=== PATIENT | female | born 1960 | race Caucasian/White ===

== ENCOUNTER → 2018-05-07 | Outpatient (CLI) | payer MEDICARE, MEDICAID ==
[~2018-05-07] MED LIST: ABILIFY5 MG PO; ASPIRIN 32325 MG/TAB PO; BP MED UNKNOWN; CELEXA40 MG PO; DESYREL 50MG50 MG PO; EFFEXOR; FLONASE NS; GABAPENTIN; LEVAQUIN 5500 MG/TA1 PO; LITHIUM 60600 MG/CAP PO; LOPRESSOR 225 MG/TAB PO; LORTAB 5/500 501 TAB PO; NORCO 325 MG-51 TAB PO; PERCOCET 325 MG1 TA2 PO; PREDNISONE10 MG PO; PREDNISONE20 MG PO; PROAIR HFA0.09 MG/AC IH; REMERON 15M15 MG/TA1; ROPINAROLE; RT SPIRIVA18 MCG IH; UNABLE; VOLTAREN GEL 1%1 TU TP; ZOVIRAX 200MG200 MG PO; ZOVIRAX800 MG PO; [UNRECOGNIZED DRUG - REMARK]; auralgan OT
== END ==
LOC: MC.RAD 10:20
DX: Z12.31 Encounter for screening mammogram for malignant neoplasm of breast (principal)

== ENCOUNTER → 2018-07-09 | Outpatient (CLI) | payer MEDICARE | LOC: COL.RAD 13:56 | DX: D35.02 Benign neoplasm of left adrenal gland (principal) ==

== ENCOUNTER → 2018-07-13 | Outpatient (CLI) | payer MEDICARE | LOC: COL.LAB 07:42 | DX: D35.02 Benign neoplasm of left adrenal gland (principal) ==

== ENCOUNTER → 2018-07-26 | Outpatient (CLI) | payer MEDICARE | LOC: COL.LAB 07:46 | DX: D35.02 Benign neoplasm of left adrenal gland (principal) ==

== ENCOUNTER → 2018-08-08 | Outpatient (CLI) | payer MEDICARE | LOC: COL.LAB 07:55 | DX: D35.02 Benign neoplasm of left adrenal gland (principal) ==

== ENCOUNTER 2018-09-03 16:50 | Emergency (ER) | payer MEDICARE, MEDICAID ==
[~2018-09-03] VITALS: Ht 157.5 cm; Wt 54.1 kg
[2018-09-03] MEDS ORDERED: MULTI VITAMINS1 TAB PO (17:49)
[2018-09-03] MEDS ORDERED: VENTOLIN0.09 MG IH (17:50)
[2018-09-03] MEDS ORDERED: FLORAJEN A20 Billion PO (17:54)
[2018-09-03 18:03] LABS: BASO % 0.3 % (0.0-2.0); EOS # 0.4 (0.0-0.7); EOS % 3.5 % (0-4.0); GRAN # 7.8 (1.4-6.5); GRAN % 62.1 % (42.2-75.2); HEMATOCRIT 41.4 % (37.0-47.0); HEMOGLOBIN 14.2 g/dl (12.5-16.0); LYMPH # 3.2 (1.2-3.4); LYMPH % 25.7 % (20.0-51.0); MEAN CELL VOLUME 95 fl (80.0-100.0); MEAN CORPUSCULAR HEMOGLOBIN 33 pg (27.0-31.0); MEAN CORPUSCULAR HGB CONC 34 g/dl (33.0-37.0); MEAN PLATELET VOLUME 11.5 fl (7.4-10.4); MONO % 8.1 % (1.7-9.3); PLATELET COUNT 185 K/mm3 (130-400); RED BLOOD COUNT 4.37 M/mm3 (4.10-5.30); REDCELL DISTRIBUTION WIDTH-CV 13.1 % (11.5-14.5)
[2018-09-03 18:15] LABS: BILIRUBIN,TOTAL 0.5 mg/dL (0.0-1.0); CALCIUM 10.1 mg/dL (8.4-10.2); CREATININE, serum 0.85 (0.52-1.25); POTASSIUM 3.9 mmol/L (3.4-5.0)
[2018-09-03 18:16] LABS: C-REACTIVE PROTEIN 0.5 mg/dL (0.0-0.9)
[2018-09-03 19:54] LABS: COLLECTION METHOD CLEAN CATCH
[2018-09-03 20:06] LABS: PH 6 (5-8); SQUAMOUS EPITHELIAL 0-2 /hpf; URINE APPEARANCE Clear; URINE BACTERIA None Seen /hpf; URINE BILIRUBIN Negative (NEGATIVE); URINE BLOOD Negative (NEGATIVE); URINE COLOR Yellow; URINE GLUCOSE Negative (NEGATIVE); URINE KETONE Negative (NEGATIVE); URINE LEUKOCYTE ESTERASE Negative (NEGATIVE); URINE NITRATE Negative (NEGATIVE); URINE PROTEIN(semi-quant) Negative (NEGATIVE); URINE RBC None Seen /hpf; URINE UROBILINOGEN Negative (NEGATIVE)
[2018-09-03] MEDS ORDERED: NORCO 325 MG-51 TAB PO (21:36)
[2018-09-03] MEDS ORDERED: DOXYCYCLINE 10100 MG PO (21:36)
[2018-09-03 22:04] VITALS: TEMP 98.5
[2018-09-03 22:14] VITALS: BP 137/79; PULSE 77
== END 2018-09-03 22:14 | disposition home or self-care (01) ==
LOC: COL.ER 16:50
PROVIDERS: Emergency Medicine
DX: J40 Bronchitis, not specified as acute or chronic (principal); B34.9 Viral infection, unspecified; J44.9 Chronic obstructive pulmonary disease, unspecified; I10 Essential (primary) hypertension; Z98.890 Other specified postprocedural states; F17.210 Nicotine dependence, cigarettes, uncomplicated; Z88.8 Allergy status to other drugs, medicaments and biological substances
CPT/HCPCS: J1885; J2060; J3010; J7030; Q9967

== ENCOUNTER 2019-03-06 08:09 | Day surgery (SDC) | payer MEDICARE, MEDICAID ==
[2019-03-06] VITALS (7 sets, daily range): BP systolic 97–140; BP diastolic 64–81; PULSE 74–88; TEMP 97.4–97.9
[~2019-03-06] VITALS: Ht 157.5 cm; Wt 55.4 kg
[~2019-03-06 08:09] MED LIST changes: +DOXYCYCLINE 10100 MG PO; +FLORAJEN A20 Billion PO; +MULTI VITAMINS1 TAB PO; +VENTOLIN0.09 MG IH
[2019-03-06] MEDS ORDERED: PRINZIDE 12.5 M1 TA1 PO (09:17)
[2019-03-06] MEDS ORDERED: NORCO 325 MG-51 TAB PO (11:04)
--- NOTE | 2019-03-06 14:26 | NUR ---
PT CONT TO EAT ICE CHIPS, VSS. ENCOURAGED PT TO REST. PT STATED, 'ILL BE ALRIGHT' DENIES PAIN AT THIS TIME, WILL CONT TO MONITOR.
--- NOTE | 2019-03-06 14:35 | NUR ---
PT STARTED DRY HEAVING, C/O NAUSEA. ZOFRAN 4MG GIVEN IV OVER 5 MINUTES GIVEN. PT DENIES PAIN, VSS. MOM IN ROOM, CALL LIGHT IN REACH.
--- NOTE | 2019-03-06 14:38 | NUR ---
1330: PT STATED, 'I FEEL ALOT BETTER NOW.' TOLERATING FLUIDS AND FOOD. CHOCOLATE PUDDIING AND GRAPE JUICE. O2 REMOVED. O2 SATS REMAIN IN THE MID 90'S ON ROOM AIR. O2 SAT WAS 96%. STATES, 'WHEN CAN I GO HOME.' DISCHARGE INFO IS BEING GATHERED.
--- NOTE | 2019-03-06 14:46 | NUR ---
PT A/OX3, DENIES NAUSEA AND/OR PAIN. VS STABLE. DISCHARGE INSTRUCTIONS GIVEN, SCRIPTS GIVEN, PT VOICES UNDERSTANDING. DISCHARGE PAPERS SIGNED. PT TAKEN OUT PER WC TO FAMILY VEHICLE, PT MOM DRIVING.
--- NOTE | 2019-03-06 14:55 | NUR ---
1205: PT FROM PACU INTO BAY 2. PT ALERT TO NAME, SLEEPY. PT STATES FEELING NAUSEATED IN PACU. PT RECIEVED IV PHENERGAN IN PACU. VSS, AFEBRILE. BANDAIDS X4 CLEAN, DRY, INTACT. LUNGS CLEAR, DIMINISHED. O2 SATS 99% ON 2L. BOWEL SOUNDS HYPOACTIVE. PT DENIES PAIN. PT MOM AT BEDSIDE, CALL LIGHT IN REACH.
== END 2019-03-06 15:04 | disposition home or self-care (01) ==
LOC: SDCO 08:09
DX: K81.1 Chronic cholecystitis (principal); K82.8 Other specified diseases of gallbladder; I10 Essential (primary) hypertension; D35.00 Benign neoplasm of unspecified adrenal gland; E78.00 Pure hypercholesterolemia, unspecified; Z82.3 Family history of stroke; Z82.49 Family history of ischemic heart disease and other diseases of the circulatory system; F17.210 Nicotine dependence, cigarettes, uncomplicated; Z88.8 Allergy status to other drugs, medicaments and biological substances; J44.9 Chronic obstructive pulmonary disease, unspecified
CPT/HCPCS: J0690; J1100; J1885; J2370; J2405; J2550; J2704; J3010; J7120

== ENCOUNTER → 2019-06-25 | Outpatient (CLI) | payer MEDICARE ==
[~2019-06-25] MED LIST changes: +PRINZIDE 12.5 M1 TA1 PO
== END ==
LOC: MC.RAD 10:51
DX: Z12.31 Encounter for screening mammogram for malignant neoplasm of breast (principal); Z12.2 Encounter for screening for malignant neoplasm of respiratory organs; C34.32 Malignant neoplasm of lower lobe, left bronchus or lung; I10 Essential (primary) hypertension; Z87.891 Personal history of nicotine dependence

== ENCOUNTER 2020-01-10 11:45 | Emergency (ER) | payer MEDICARE, MEDICAID ==
[~2020-01-10] VITALS: Ht 157.5 cm; Wt 62.7 kg
[2020-01-10 12:06] VITALS: TEMP 98
[2020-01-10 12:42] LABS: BASO % 0.3 % (0.0-2.0); EOS # 0.1 (0.0-0.7); EOS % 0.6 % (0-4.0); GRAN % 66.7 % (42.2-75.2); HEMATOCRIT 47.3 % (37.0-47.0); HEMOGLOBIN 16.1 g/dl (12.5-16.0); LYMPH # 2.6 (1.2-3.4); LYMPH % 22.1 % (20.0-51.0); MEAN CELL VOLUME 92 fl (80.0-100.0); MEAN CORPUSCULAR HEMOGLOBIN 31 pg (27.0-31.0); MEAN CORPUSCULAR HGB CONC 34 g/dl (33.0-37.0); MEAN PLATELET VOLUME 11.3 fl (7.4-10.4); MONO # 1.2 (0.1-0.6); PLATELET COUNT 288 K/mm3 (130-400); RED BLOOD COUNT 5.14 M/mm3 (4.10-5.30); REDCELL DISTRIBUTION WIDTH-CV 13.4 % (11.5-14.5)
[2020-01-10 12:50] LABS: INR 1.1 (0.8-3.0); PROTHROMBIN TIME 12.1 SECONDS (9.7-12.8)
[2020-01-10 12:56] LABS: ALBUMIN 4.8 gm/dL (3.5-5.0); BILIRUBIN,TOTAL 1.1 mg/dL (0.0-1.0); C-REACTIVE PROTEIN 0.8 mg/dL (0.0-0.9); CALCIUM 10.6 mg/dL (8.4-10.2); CREATININE, serum 1.03 (0.52-1.25); POTASSIUM 3.2 mmol/L (3.4-5.0); TOTAL PROTEIN 9.3 gm/dL (6.4-8.2)
[2020-01-10 13:14] LABS: TROPONIN-I 1.13 ng/mL (0.000-0.035)
[2020-01-10 13:43] LABS: PARTIAL THROMBOPLASTIN TIME 33.3 SECONDS (26.0-37.0)
[2020-01-10] MEDS ORDERED: CHANTIX 0.5MG0.5 MG PO (16:22)
[2020-01-10 17:40] VITALS: BP 98/75; PULSE 110
== END 2020-01-10 17:40 | disposition short-term general hospital (02) ==
LOC: COL.ER 11:45
PROVIDERS: Emergency Medicine
DX: R06.02 Shortness of breath (principal); I48.0 Paroxysmal atrial fibrillation; R11.0 Nausea; R07.9 Chest pain, unspecified; I10 Essential (primary) hypertension; J44.9 Chronic obstructive pulmonary disease, unspecified; F17.210 Nicotine dependence, cigarettes, uncomplicated; Z85.118 Personal history of other malignant neoplasm of bronchus and lung; Z88.8 Allergy status to other drugs, medicaments and biological substances
CPT/HCPCS: J0696; J1644; J2930; J7030; Q9967

== ENCOUNTER 2020-07-16 06:50 | Outpatient (CLI) | payer MEDICARE ==
[~2020-07-16] VITALS: Ht 156.2 cm; Wt 64.8 kg
[~2020-07-16 06:50] MED LIST changes: +CHANTIX 0.5MG0.5 MG PO; +DUO-KAPS1 CAP PO; -LOPRESSOR 225 MG/TAB PO; -MULTI VITAMINS1 TAB PO; -PRINZIDE 12.5 M1 TA1 PO; +TOPROL XL 50MG50 MG PO; +ZESTRIL40 MG PO
[2020-07-16 07:56] LABS: HEMATOCRIT 37.1 % (37.0-47.0); HEMOGLOBIN 12.1 g/dl (12.5-16.0); MEAN CELL VOLUME 94 fl (80.0-100.0); MEAN CORPUSCULAR HEMOGLOBIN 31 pg (27.0-31.0); MEAN CORPUSCULAR HGB CONC 33 g/dl (33.0-37.0); MEAN PLATELET VOLUME 10.4 fl (7.4-10.4); PLATELET COUNT 186 K/mm3 (130-400); RED BLOOD COUNT 3.97 M/mm3 (4.10-5.30); REDCELL DISTRIBUTION WIDTH-CV 13.9 % (11.5-14.5)
[2020-07-16 08:05] LABS: ALANINE AMINOTRANSFERASE 23 U/L (4-34); ALBUMIN 3.8 gm/dL (3.5-5.0); ALKALINE PHOSPHATASE 69 U/L (50-136); ANION GAP 7 mmol/L (7-16); AST,SGOT 28 U/L (15-37); BILIRUBIN,TOTAL < 0.1 mg/dL (0.0-1.0); BLOOD UREA NITROGEN 19 mg/dL (7-17); CALCIUM 8.8 mg/dL (8.4-10.2); CARBON DIOXIDE 29 mmol/L (22-30); CHLORIDE 104 mmol/L (98-107); CREATININE, serum 0.68 (0.52-1.25); GLUCOSE 86 mg/dL (74-106); POTASSIUM 4.1 mmol/L (3.4-5.0); SODIUM 140 mmol/L (137-145); TOTAL PROTEIN 7.5 gm/dL (6.4-8.2)
[2020-07-16 08:10] LABS: PROTHROMBIN TIME 10.9 SECONDS (9.7-12.8)
[2020-07-16 08:14] VITALS: BP 142/112; PULSE 66; TEMP 97.7
[2020-07-16] MEDS ORDERED: ASPIRIN 81M81 MG/TA2 PO (08:21)
[2020-07-16] MEDS ORDERED: LOTRIMIN1% TP (08:23)
[2020-07-16] MEDS ORDERED: APRESOLINE 10MG10 MG PO (08:24)
[2020-07-16] MEDS ORDERED: TAMBOCOR 1100 MG/TAB PO (08:24)
[2020-07-16] MEDS ORDERED: MAG-OX 400400 MG/TAB PO (08:25)
[2020-07-16] MEDS ORDERED: COMPAZINE 5MG TA5 MG PO (08:27)
[2020-07-16] MEDS ORDERED: RT SPIRIVA18 MCG IH (08:27)
[2020-07-16] MEDS ORDERED: TRIAMCINOLONE A15 G3 TP (08:29)
[2020-07-16] MEDS ORDERED: VENTOLIN0.09 MG IH (08:29)
[2020-07-16 09:20] VITALS: BP 112/76; PULSE 77
[2020-07-16 09:30] VITALS: BP 118/82; PULSE 81
[2020-07-16 09:45] VITALS: BP 136/86; PULSE 77
[2020-07-16] MEDS ORDERED: ELIQUIS 2.5 PO (09:54)
[2020-07-16 10:00] VITALS: BP 140/88; PULSE 74
[2020-07-16] MEDS ORDERED: NORVASC 5MG5 MG/TAB PO (10:01)
[2020-07-16 10:15] VITALS: BP 139/88; PULSE 72
--- NOTE | 2020-07-16 11:00 | NUR ---
Discharge instructions given to pt.Pt verbalizes understanding.INT removed,catheter tip intact.Pt escorted out via wheelchair by this nurse.
== END 2020-07-16 11:27 | disposition home or self-care (01) ==
LOC: COL.RAD 06:50
PROVIDERS: Internal Medicine Adult Congenital Heart Disease
DX: I48.91 Unspecified atrial fibrillation (principal); I08.1 Rheumatic disorders of both mitral and tricuspid valves; I70.0 Atherosclerosis of aorta
CPT/HCPCS: J2704; J7030

== ENCOUNTER 2020-10-13 07:20 | Outpatient (CLI) | payer MEDICARE, MEDICAID ==
[2020-10-13] VITALS (7 sets, daily range): BP systolic 80–110; BP diastolic 59–78; PULSE 60–73; TEMP 97.8
[~2020-10-13] VITALS: Ht 156.3 cm; Wt 68.3 kg
[~2020-10-13 07:20] MED LIST changes: +APRESOLINE 10MG10 MG PO; +ASPIRIN 81M81 MG/TA2 PO; +COMPAZINE 5MG TA5 MG PO; +ELIQUIS 2.5 PO; +LOTRIMIN1% TP; +MAG-OX 400400 MG/TAB PO; +NORVASC 5MG5 MG/TAB PO; +TAMBOCOR 1100 MG/TAB PO; +TRIAMCINOLONE A15 G3 TP
[2020-10-13 08:33] LABS: HEMOGLOBIN 10.1 g/dl (12.5-16.0); MEAN CELL VOLUME 96 fl (80.0-100.0); MEAN CORPUSCULAR HEMOGLOBIN 30 pg (27.0-31.0); MEAN CORPUSCULAR HGB CONC 31 g/dl (33.0-37.0); MEAN PLATELET VOLUME 10.2 fl (7.4-10.4); PLATELET COUNT 305 K/mm3 (130-400); RED BLOOD COUNT 3.37 M/mm3 (4.10-5.30); REDCELL DISTRIBUTION WIDTH-CV 14.5 % (11.5-14.5)
[2020-10-13 08:34] LABS: HEMATOCRIT 32.5 % (37.0-47.0)
[2020-10-13 08:38] LABS: INR 1.1 (0.8-3.0); PROTHROMBIN TIME 12.5 SECONDS (9.7-12.8)
[2020-10-13 08:42] LABS: CALCIUM 8.9 mg/dL (8.4-10.2); CREATININE, serum 1.52 (0.52-1.25); POTASSIUM 4.8 mmol/L (3.4-5.0)
[2020-10-13] MEDS ORDERED: NORVASC2.5 MG PO (08:43)
[2020-10-13] MEDS ORDERED: LIPITOR20 MG PO (08:49)
[2020-10-13] MEDS ORDERED: SINEQUAN 5050 MG/CAP PO (08:51)
[2020-10-13] MEDS ORDERED: PEPCID 20MG TAB20 MG PO (08:52)
--- NOTE | 2020-10-13 09:30 | NUR ---
REPORT FROM KIM PATEL, PT IS AWAKE AND ALERT, NO DISTRESS OR COMPLAINTS. ABLE TO DRINK WATER AND JUICE WITH NO PROBLEM.
--- NOTE | 2020-10-13 10:51 | NUR ---
PT has been doing fine during her recovery period. pt remains awake and alert, she is amb now with steady gait, she ambulated to br in rm [address] Mcdaniel was just at bs to discuss poc. discharge is pending.
[2020-10-13] MEDS ORDERED: PLAVIX 75MG TAB75 MG PO (10:53)
[2020-10-13] MEDS ORDERED: ASPIRIN 81M81 MG/TA2 PO (10:54)
--- NOTE | 2020-10-13 11:17 | NUR ---
Pt is ready for discharge. i have reviewed dc/fu and rx instructions wtih pt. pt verbalized understanding. iv is dc'd with cath intact, dressing applied. to exit via wheelchair.
== END 2020-10-13 12:04 | disposition home or self-care (01) ==
LOC: COL.RAD 07:20
PROVIDERS: Internal Medicine Adult Congenital Heart Disease
DX: Z95.818 Presence of other cardiac implants and grafts (principal)
CPT/HCPCS: J2704

== ENCOUNTER 2021-07-19 17:09 | Emergency (ER) | payer MEDICARE, MEDICAID ==
[~2021-07-19] VITALS: Ht 154.9 cm; Wt 72.7 kg
[~2021-07-19 17:09] MED LIST changes: +LIPITOR20 MG PO; +NORVASC2.5 MG PO; +PEPCID 20MG TAB20 MG PO; +PLAVIX 75MG TAB75 MG PO; +SINEQUAN 5050 MG/CAP PO
[2021-07-19 18:01] LABS: BASO % 0.3 % (0.0-2.0); EOS # 0.5 K/mm3 (0.0-0.7); EOS % 6.9 % (0.0-4.0); GRAN # 3.4 K/mm3 (1.4-6.5); GRAN % 52.6 % (42.2-75.2); HEMATOCRIT 37.1 % (37.0-47.0); HEMOGLOBIN 12.1 g/dl (12.5-16.0); LYMPH # 1.9 K/mm3 (1.2-3.4); LYMPH % 29.6 % (20.0-51.0); MEAN CELL VOLUME 90 fl (80.0-100.0); MEAN CORPUSCULAR HEMOGLOBIN 29 pg (27-31); MEAN CORPUSCULAR HGB CONC 33 g/dl (33.0-37.0); MONO # 0.7 K/mm3 (0.1-0.6); MONO % 10.3 % (1.7-9.3); PLATELET COUNT 207 K/mm3 (130-400); RED BLOOD COUNT 4.11 M/mm3 (4.10-5.30); REDCELL DISTRIBUTION WIDTH-CV 14.6 % (11.5-14.5)
[2021-07-19 18:17] LABS: ALBUMIN 3.6 gm/dL (3.5-5.0); BILIRUBIN,TOTAL 0.4 mg/dL (0.2-1.2); CALCIUM 8.9 mg/dL (8.4-10.2); CREATININE, serum 0.96 mg/dL (0.57-1.11); POTASSIUM 3.6 mmol/L (3.5-4.5); TOTAL PROTEIN 7.3 gm/dL (6.2-8.1)
[2021-07-19 18:22] LABS: TROPONIN-I 0.017 ng/mL (0.00-0.033)
[2021-07-19] MEDS ORDERED: DOXYCYCLINE 10100 MG PO (19:41)
[2021-07-19] MEDS ORDERED: PREDNISONE50 MG PO (19:41)
[2021-07-19 19:58] VITALS: BP 154/82; PULSE 63; TEMP 98.2
== END 2021-07-19 19:58 | disposition home or self-care (01) ==
LOC: COL.ER 17:09
PROVIDERS: Emergency Medicine
DX: J44.1 Chronic obstructive pulmonary disease with (acute) exacerbation (principal); R03.0 Elevated blood-pressure reading, without diagnosis of hypertension; Z87.891 Personal history of nicotine dependence; Z20.822 Contact with and (suspected) exposure to COVID-19
CPT/HCPCS: J7512

== ENCOUNTER 2021-07-21 12:41 | Inpatient (IN) | payer MEDICARE, MEDICAID ==
[~2021-07-21] VITALS: Ht 154.9 cm; Wt 69.3 kg
[~2021-07-21 12:41] MED LIST changes: +PREDNISONE50 MG PO
[2021-07-21 13:53] LABS: BASO % 0.2 % (0.0-2.0); EOS % 0.1 % (0.0-4.0); GRAN # 9.5 K/mm3 (1.4-6.5); GRAN % 84.7 % (42.2-75.2); HEMATOCRIT 38.5 % (37.0-47.0); HEMOGLOBIN 12.5 g/dl (12.5-16.0); LYMPH # 1.1 K/mm3 (1.2-3.4); LYMPH % 9.6 % (20.0-51.0); MEAN CELL VOLUME 91 fl (80.0-100.0); MEAN CORPUSCULAR HEMOGLOBIN 30 pg (27-31); MEAN CORPUSCULAR HGB CONC 33 g/dl (33.0-37.0); MEAN PLATELET VOLUME 10.8 fl (7.4-10.4); MONO # 0.6 K/mm3 (0.1-0.6); PLATELET COUNT 233 K/mm3 (130-400); RED BLOOD COUNT 4.23 M/mm3 (4.10-5.30); REDCELL DISTRIBUTION WIDTH-CV 14.8 % (11.5-14.5)
[2021-07-21 14:23] LABS: ALANINE AMINOTRANSFERASE 17 U/L (0-55); ALBUMIN 3.9 gm/dL (3.5-5.0); ALKALINE PHOSPHATASE 88 U/L (40-150); ANION GAP 11 mmol/L (7-16); AST,SGOT 16 U/L (5-34); BILIRUBIN,TOTAL 0.4 mg/dL (0.2-1.2); BLOOD UREA NITROGEN 15 mg/dL (10-20); CALCIUM 9.5 mg/dL (8.4-10.2); CARBON DIOXIDE 26 mmol/L (22-29); CHLORIDE 104 mmol/L (98-107); CREATININE, serum 0.99 mg/dL (0.57-1.11); GLUCOSE 93 mg/dL (70-99); POTASSIUM 3.7 mmol/L (3.5-4.5); SODIUM 141 mmol/L (136-145); TOTAL PROTEIN 7.7 gm/dL (6.2-8.1)
[2021-07-21 14:29] LABS: TROPONIN-I < 0.010 ng/mL (0.00-0.033)
[2021-07-21] MEDS ORDERED: HCTZ12.5TAB PO (15:53)
[2021-07-21 16:28] VITALS: BP 154/86; PULSE 65; TEMP 98
--- NOTE | 2021-07-21 17:00 | NUR ---
Pt arrived to medical unit room 358 from ER at 1620. Oriented pt to room. Admission assessments and med rec completed. Pt currently on 4 lpm O2 by NC w/sats 92%. Breathing relaxed and unlabored. Denies SOA at rest. Lungs diminished to auscultation. Denies needs at this time. Continuing to monitor.
[2021-07-21 20:05] VITALS: BP 121/61; PULSE 72; TEMP 98
[2021-07-21] MEDS ORDERED: 00186-0372-20 IH (23:27)
[2021-07-22 00:17] VITALS: BP 126/68; BP 137/79; PULSE 57; PULSE 72; TEMP 97.9; TEMP 99
[2021-07-22 03:47] VITALS: BP 130/78; PULSE 107; TEMP 97.8
--- NOTE | 2021-07-22 06:23 | NUR ---
ASSESSMENT COMPLETE FOR THIS SHIFT. PT RESTING IN BED WATCHING TV. PT COMPLAINED OF A HEADACHE. PT GIVEN TYLENOL FOR PAIN. PT FELT TYLENOL WAS EFFECTIVE FOR HER PAIN. PT DENIED PALPITATIONS, SOB, N,V,D OR DIZZINESS. PT EXPRESSED NO OTHER NEEDS AT THIS TIME. CALL LIGHT WITHIN REACH.
[2021-07-22 08:17] LABS: GRAN # 5.8 K/mm3 (1.4-6.5); GRAN % 83.2 % (42.2-75.2); HEMATOCRIT 40.9 % (37.0-47.0); HEMOGLOBIN 13.4 g/dl (12.5-16.0); LYMPH # 0.9 K/mm3 (1.2-3.4); LYMPH % 12.9 % (20.0-51.0); MEAN CELL VOLUME 90 fl (80.0-100.0); MEAN CORPUSCULAR HEMOGLOBIN 30 pg (27-31); MEAN CORPUSCULAR HGB CONC 33 g/dl (33.0-37.0); MEAN PLATELET VOLUME 11.2 fl (7.4-10.4); MONO # 0.2 K/mm3 (0.1-0.6); PLATELET COUNT 235 K/mm3 (130-400); RED BLOOD COUNT 4.55 M/mm3 (4.10-5.30); REDCELL DISTRIBUTION WIDTH-CV 14.6 % (11.5-14.5)
[2021-07-22 08:32] LABS: CALCIUM 9.4 mg/dL (8.4-10.2); POTASSIUM 3.4 mmol/L (3.5-4.5)
--- NOTE | 2021-07-22 08:41 | NUR ---
PT RESTING IN BED. MORNING MEDICATIONS WILL BE GIVEN BY STUDENT RN. SHIFT ASSESSMENT COMPLETED. DENIES ANY PAIN AT THIS TIME. STATES SHE HAS BEEN GETTING SOB WITH ACTIVITY. PT STATES SHE THINKS SHE MAY BE HAVING HALLUCINATIONS X3 TIMES, WILL PASS ALONG TO HOSPITALIST. DENIES ANY OTHER NEEDS. WILL CONTINUE TO MONITOR.
[2021-07-22 08:59] VITALS: BP 157/96; PULSE 82; TEMP 98.1
--- NOTE | 2021-07-22 10:34 | NUR ---
Initial visit; Patient thanked Wildlife Management Professor for looking in on her and offering God's blessings.
[2021-07-22 12:16] VITALS: BP 161/84; PULSE 68; TEMP 97.8
[2021-07-22 16:38] VITALS: BP 144/87; PULSE 68; TEMP 98.1
--- NOTE | 2021-07-22 18:15 | NUR ---
PT HAD UNEVENTFUL DAY. CURRENTLY ON 3.5L VIA NC. COMPLAINS OF PERSISTENT COUGH, DENIES ANY SPUTUM PRODUCTION. WILL PASS ALONG REPORT TO ONCOMING RN.
[2021-07-22 19:22] VITALS: BP 137/72; PULSE 67; TEMP 98.2
[2021-07-23] VITALS (7 sets, daily range): BP systolic 119–165; BP diastolic 51–91; PULSE 62–85; TEMP 97.3–98.3
--- NOTE | 2021-07-23 03:17 | NUR ---
ASSESSMENT COMPLETE FOR THIS SHIFT. PT RESTING IN BED READING SOMETHING ON HER PHONE. PT DENIED PAIN, PALPITATIONS, N,V,D OR DIZZINESS. PT DID STATE SHE CONTINUES TO HAVE SOB WITH AMBULATION. PT HAS HAD AN OTHERWISE UNEVENTFUL NIGHT THUS FAR. PT EXPRESSED NO OTHER NEEDS AT THIS TIME. CALL LIGHT WITHIN REACH.
[2021-07-23 06:49] LABS: BASO % 0.1 % (0.0-2.0); GRAN # 7.3 K/mm3 (1.4-6.5); GRAN % 83.8 % (42.2-75.2); HEMATOCRIT 40.4 % (37.0-47.0); HEMOGLOBIN 13.3 g/dl (12.5-16.0); LYMPH # 0.9 K/mm3 (1.2-3.4); LYMPH % 10.8 % (20.0-51.0); MEAN CELL VOLUME 90 fl (80.0-100.0); MEAN CORPUSCULAR HEMOGLOBIN 30 pg (27-31); MEAN CORPUSCULAR HGB CONC 33 g/dl (33.0-37.0); MONO # 0.4 K/mm3 (0.1-0.6); MONO % 4.6 % (1.7-9.3); PLATELET COUNT 232 K/mm3 (130-400); RED BLOOD COUNT 4.47 M/mm3 (4.10-5.30)
[2021-07-23 07:03] LABS: CALCIUM 9.6 mg/dL (8.4-10.2); CREATININE, serum 0.94 mg/dL (0.57-1.11); POTASSIUM 3.5 mmol/L (3.5-4.5)
--- NOTE | 2021-07-23 08:19 | NUR ---
PT SITTING UP IN BED. MORNING MEDICATIONS WILL BE GIVEN BY STUDENT RN. SHIFT ASSESSMENT COMPLETED. PT CURRENTLY ON 3.5L VIA VA. REPORTS SHE FEELS HER BREATHING HAS IMPROVED. DENIES ANY NEEDS AT THIS TIME. WILL CONTINUE TO MONITOR.
--- NOTE | 2021-07-23 13:24 | NUR ---
First visit from the brake operator sheet metal. No needs right now.
--- NOTE | 2021-07-23 14:51 | NUR ---
poultry farm worker met with patient to discuss discharge plan. Patient reports that she lives in the [facility] in [place]. Patient states that she is Independent with her ADL's and that she is "supposed" to use a platform crutch but doesn't becuase " I trip over it". She does currently have a portable oxygen concentrator and a home concentrator that she stats she has had to use recently. She obtained the equipment through [facility] and states they have been " calling me to get the equipment back". PCP is Dr. Albania Pierre and she utilizes [facility] for medications with no cost difficulty. Patient reports that she does have a DPOA-HC established and that her daughter Malini ([phone]) is listed at her agent. Patient will get a ex ox before discharge and that will need to be sent to [facility]. Discharge plan: Home; may need to send updated oxygen information to [facility]
--- NOTE | 2021-07-23 17:48 | NUR ---
PT HAD UNEVENTFUL EVENING. IS HOPING TO DISCHARGE TOMORROW. WILL CONTINUE TO MONITOR.
[2021-07-24 03:30] VITALS: BP 158/84; PULSE 69; TEMP 97.8
[2021-07-24 04:45] VITALS: BP 121/91; PULSE 122; TEMP 97.7
[2021-07-24 04:57] LABS: CALCIUM 9.5 mg/dL (8.4-10.2); CREATININE, serum 0.99 mg/dL (0.57-1.11); POTASSIUM 3.4 mmol/L (3.5-4.5)
--- NOTE | 2021-07-24 06:20 | NUR ---
ASSESSMENT COMPLETE FOR THIS SHIFT. PT RESTING IN BED WATCH TV. PT DENIED PAIN, PALPITATIONS, N,V,D OR DIZZINESS. PT COMPLAINED OF SOME SOB WITH AMBULATION. LATER THIS SHIFT, ANDREW GRUBBS CALLED AND STATED PT HAD SEVERAL BEATS OF V-TAC. PT NON-SYMPTOMATIC. HOSPITALIST CALLED. PT PLACED ON AMIODARONE DRIP. WILL CONTINUE TO MONITOR. PT EXPRESSED NO OTHER NEEDS AT THIS TIME. CALL LIGHT WITHIN REACH.
[2021-07-24 08:24] VITALS: BP 150/82; PULSE 66; TEMP 99
--- NOTE | 2021-07-24 09:05 | NUR ---
AMIO DRIP STOPPED BY THIS RN. REPORT GIVEN TO JORGE SAUCEDO.
--- NOTE | 2021-07-24 09:15 | NUR ---
PT PLEASANT, AOX4, MAG INFUSING PER ORDER, POTASSIUM REPLACED WITH ALL OTHER MORNING MEDICATIONS, EDUCATED PT ON ALL MEDS GIVEN AND ASSOCIATED LABS. ASSESSMENT PERFORMED, NO OTHER NEEDS AT THIS TIME.
[2021-07-24 11:17] VITALS: BP 140/83; PULSE 64; TEMP 98.3
--- NOTE | 2021-07-24 13:17 | NUR ---
PT REPORTING "MY HEAD FEELS AIRY" WHEN ASKED IF PT MEANT DIZZINESS SHE SAID "NO IT JUST FEELS LIKE ITS FULL OF AIR". PT THEN REQUESTED TYLENOL FOR A HEADACHE. TYLENOL GIVEN AND PT DENIE CHEST PAIN AT THIS TIME
[2021-07-24 15:07] VITALS: BP 132/63; PULSE 66; TEMP 97.7
--- NOTE | 2021-07-24 18:14 | NUR ---
PT PLEASANT, AOX4, REPORTS HEAD DISCOMFORT, UNEVENTFUL SHIFT, PT INDEPENDENT IN THE ROOM, NO OTHER NEEDS
[2021-07-24 20:49] VITALS: BP 131/71; PULSE 65; TEMP 97.8
[2021-07-25 00:38] VITALS: BP 142/81; PULSE 71; TEMP 98.3
[2021-07-25 04:13] VITALS: BP 126/77; PULSE 54; TEMP 97.2
--- NOTE | 2021-07-25 06:20 | NUR ---
ASSESSMENT COMPLETE FOR THIS SHIFT. PT RESTING IN BED WATCHING TV. PT STATED, "I DON'T HAVE CABLE AT HOME, SO I'M GETTING IN MANY SHOWS I CAN!" PT COMPLAINED OF CHEST PAIN THAT SHE SAID LASTED ABOUT TWO SECONDS. HOSPITALIST INFORMED. WILL CONTINUE TO MONOTOR. PT ALSO COMPLAINED OF SOB WITH AMBULATION, WHICH IS NORMAL FOR HER. PT DENIED PALPITATIONS, N,V,D OR DIZZINESS. PT EXPRESSED NO OTHER NEEDS AT THIS TIME. CALL LIGHT WITHIN REACH.
[2021-07-25 07:16] LABS: BASO % 0.1 % (0.0-2.0); EOS % 0.1 % (0.0-4.0); GRAN # 6.7 K/mm3 (1.4-6.5); GRAN % 75.9 % (42.2-75.2); HEMOGLOBIN 13.3 g/dl (12.5-16.0); LYMPH # 1.2 K/mm3 (1.2-3.4); LYMPH % 13.4 % (20.0-51.0); MEAN CELL VOLUME 90 fl (80.0-100.0); MEAN CORPUSCULAR HEMOGLOBIN 29 pg (27-31); MEAN CORPUSCULAR HGB CONC 32 g/dl (33.0-37.0); MEAN PLATELET VOLUME 11.3 fl (7.4-10.4); MONO # 0.9 K/mm3 (0.1-0.6); MONO % 9.8 % (1.7-9.3); PLATELET COUNT 245 K/mm3 (130-400); RED BLOOD COUNT 4.54 M/mm3 (4.10-5.30); REDCELL DISTRIBUTION WIDTH-CV 14.9 % (11.5-14.5)
[2021-07-25 07:39] LABS: CALCIUM 9.2 mg/dL (8.4-10.2); CREATININE, serum 1.03 mg/dL (0.57-1.11); POTASSIUM 3.4 mmol/L (3.5-4.5)
[2021-07-25 07:53] VITALS: BP 131/70; PULSE 70; TEMP 98.1
[2021-07-25 11:58] VITALS: BP 142/81; PULSE 62; TEMP 98.1
[2021-07-25 15:51] VITALS: BP 104/70; PULSE 68; TEMP 98.4
--- NOTE | 2021-07-25 18:49 | NUR ---
PATIENT HAD ONE EPISODE OF EMESIS TODAY. OFFERED TO CALL THE AND GET AN ORDER FOR NAUSEA MEDICATION BUT PATIENT REFUSED. POTASSIUM REPLACED TODAY.
[2021-07-25 19:58] VITALS: BP 119/65; PULSE 72; TEMP 98
[2021-07-26] VITALS (12 sets, daily range): BP systolic 91–143; BP diastolic 57–80; PULSE 50–72; TEMP 97.5–98.6
--- NOTE | 2021-07-26 08:20 | NUR ---
PT AOX4, PLEASANT, DENIES PAIN, REPORTS NOT HAVING A BM SINCE MONDAY BUT ABD SOFT AND PT REPORTS PASSING GAS, PRUNE JUICE PROVIDED TO PT, ASSESSMENT PERFORMED, MEDICATIONS GIVEN, PT REPORTS HAVING A SCHEDULED OUTPT SCOTT TOMORROW. NO OTHER NEEDS
--- NOTE | 2021-07-26 10:38 | NUR ---
See merge for all medication administration, vital signs, intervention, and assessment times. Moderate sedation assessment performed on floor after assessing patient. Dr. Ceballos informed of patient having eaten breakfast.Cath rescheduled for 1300.
[2021-07-26 10:59] LABS: HEMATOCRIT 43.4 % (37.0-47.0); HEMOGLOBIN 14.4 g/dl (12.5-16.0); MEAN CELL VOLUME 89 fl (80.0-100.0); MEAN CORPUSCULAR HEMOGLOBIN 30 pg (27-31); MEAN CORPUSCULAR HGB CONC 33 g/dl (33.0-37.0); PLATELET COUNT 302 K/mm3 (130-400); RED BLOOD COUNT 4.86 M/mm3 (4.10-5.30)
[2021-07-26 11:07] LABS: PROTHROMBIN TIME 10.7 SECONDS (9.7-12.8)
[2021-07-26 11:10] LABS: PARTIAL THROMBOPLASTIN TIME 24.8 SECONDS (26.0-37.0)
[2021-07-26 11:13] LABS: CALCIUM 9.3 mg/dL (8.4-10.2); CREATININE, serum 1.17 mg/dL (0.57-1.11); POTASSIUM 4.7 mmol/L (3.5-4.5)
--- NOTE | 2021-07-26 11:28 | NUR ---
PT REPORTS MILD HEADACHE AT THIS TIME AND STATES "IT CANT TELL IF IT WANTS TO COME OR GO". PT THEN REPORTED HAVING CHEST PAIN EARLIER IN THE SHIFT IN THE CENTER OF HER CHEST RADIATING TO THE BACK. UNABLE TO STATE WHAT TYPE OF PAIN AND REPORTED IT WAS ALEVIATED ON ITS OWN IN 3-5 MINUTES. EDUCATED TO ALERT STAFF WHEN CHEST PAIN OCCURS IT COULD BE AN EMERGENCY. TYLENOL BROUGHT TO PT FOR HEADACHE. NOTIFIED STEVEN MILLAN AND JULIO CÉSAR RN OF REPORTED CHEST PAIN AND NO NEW ORDERS AT THIS TIME IT HAS RESOLVED. [facility]OTT CONSENT OBTAINED AND PREOP FLUIDS HUNG.
--- NOTE | 2021-07-26 12:16 | NUR ---
PT C/O TINGLING IN BOTH HANDS, AGRICULTURAL CONSULTANT EQUAL NO DECREASE IN SENSATION. PT ALSO C/O OCCASSIONAL BLURRY VISION IN L EYE. STEVEN MILLAN NOTIFIED, NO NEW ORDERS AT THIS TIME
--- NOTE | 2021-07-26 14:07 | NUR ---
PT RETURNED FROM HEART CATH, R RADIAL BAND ON W/ 12ML OF AIR, VITALS CART ATTACHED, WILL TRIAL RA
--- NOTE | 2021-07-26 17:00 | NUR ---
PT PLEASANT, AOX4, DEFLATING PT R RADIAL BAND, VITALS STABLE, CONSENT OBTAINED FOR [facility] TOMORROW, WILL NEED COVID SWAB BEFORE HAND, NO OTHER NEE DS
--- NOTE | 2021-07-26 18:05 | NUR ---
TR BAND DEFLATED TO 4ML, NO OOZING AT SITE, RADIAL SITE CDI AND SOFT TO PALPATION.
--- NOTE | 2021-07-26 18:36 | NUR ---
TR BAND DEFLATED, NO OOZING AT SITE. PROXIMAL TO BAND BRUISING PRESENT BUT SKIN IS SOFT. POST OP VITALS DISCONTINUED, NO OTHER NEEDS
[2021-07-27] VITALS (10 sets, daily range): BP systolic 104–152; BP diastolic 60–85; PULSE 59–69; TEMP 97.5–98.1
--- NOTE | 2021-07-27 05:39 | NUR ---
PATIENT RESTED QUIETLY IN BED THROUGHOUT THE NIGHT. NO NEW ISSUES NOTED OR REPORTED BY PATIENT. PATIENT HAS BEEN NPO SINCE MIDNIGHT.
--- NOTE | 2021-07-27 07:22 | NUR ---
PATIENT RESTING COMFORTABLY IN BED. NO COMPLAINTS OR NEEDS AT THIS TIME.
[2021-07-27 07:57] LABS: BASO % 0.2 % (0.0-2.0); EOS # 0.1 K/mm3 (0.0-0.7); EOS % 0.7 % (0.0-4.0); GRAN # 8.5 K/mm3 (1.4-6.5); GRAN % 68.9 % (42.2-75.2); HEMATOCRIT 43.8 % (37.0-47.0); HEMOGLOBIN 14.2 g/dl (12.5-16.0); LYMPH # 2.5 K/mm3 (1.2-3.4); MEAN CELL VOLUME 90 fl (80.0-100.0); MEAN CORPUSCULAR HEMOGLOBIN 29 pg (27-31); MEAN CORPUSCULAR HGB CONC 32 g/dl (33.0-37.0); MONO # 1.1 K/mm3 (0.1-0.6); MONO % 9.1 % (1.7-9.3); PLATELET COUNT 242 K/mm3 (130-400); RED BLOOD COUNT 4.85 M/mm3 (4.10-5.30)
[2021-07-27 08:09] LABS: CALCIUM 9.2 mg/dL (8.4-10.2); CREATININE, serum 1.2 mg/dL (0.57-1.11); POTASSIUM 3.9 mmol/L (3.5-4.5)
--- NOTE | 2021-07-27 08:17 | NUR ---
PT TAKEN DOWN FOR [facility]OTT WITH PT CHART.
--- NOTE | 2021-07-27 09:29 | NUR ---
PATIENT C/O MID-LOW THORACIC SPINE PAIN. LUNG SOUNDS DIMINISHED, B/L BASES WITH EXP. WHEEZES. [facility]OTT SCHEDULED THIS AM AT 0830. PATIENT NPO. INDEPENDENT IN ROOM, ON 2L OF O2.
--- NOTE | 2021-07-27 09:51 | NUR ---
PT RETURNED FROM [facility], AOX4, NO DROWSINESS PRESENT, POST OP VITALS ATTACHED, BREAKFAST ORDERED, NO OTHER ORDERS
--- NOTE | 2021-07-27 10:01 | NUR ---
PRESSURES CONCERN FOR AMOUNT OF BP MEDS PT RECIEVING, ADDRESSED CONCERN WITH DR. COYNE, ORDERED TO HOLD OF NOW AND REEVALUATE AROUND 1200.
--- NOTE | 2021-07-27 10:13 | NUR ---
PT BP INC SINCE LAST PRESSURE, VERIFIED X2. WILL GIVE BP MEDICATION
[2021-07-27] MEDS ORDERED: LIPITOR 80MG80 MG PO (10:35)
[2021-07-27] MEDS ORDERED: TAMBOCOR150 MG PO (10:35)
[2021-07-27] MEDS ORDERED: LASIX 20MG TABL20 MG PO (10:36)
[2021-07-27] MEDS ORDERED: PREDNISONE20 MG PO (10:57)
--- NOTE | 2021-07-27 13:09 | NUR ---
PATIENT PERFORMED BASIC ADL'S ON HER OWN. FAMILY AT BEDSIDE. PATIENT EXPRESSED VERBAL UNDERSTANDING OF DISCHARGE PAPERWORK, DISCHARGING HOME ON 2L O2.
--- NOTE | 2021-07-27 15:49 | NUR ---
fabric worker foreman faxed clinical information, patient's noc ox and new perscription for oxygen to [facility]. Notified Jennifer at [facility] that the patient is already established with her home oxygen there and that it would just be the updated RX. Patient notified of the above.She has her protable concentrator with her and will be able to make it home with it.Patient is presented with the [facility].IM form. Education provided and patient verbalizes her agreement with discharge plan of today. Patient's signed original placed in chart and copy provided back to her.
== END 2021-07-27 13:10 | disposition home or self-care (01) | DRG 286 ==
LOC: COL.ER 12:41 → MEDICAL 13:58
PROVIDERS: Internal Medicine; Nurse Practitioner; Physician Assistant; Student in an Organized Health Care Education/Training Program; ADMIT Internal Medicine
PROC: 4A023N7 Measurement of Cardiac Sampling and Pressure, Left Heart, Percutaneous Approach (ICD-10-PCS; principal; 2021-07-26)
PROC: B2111ZZ Fluoroscopy of Multiple Coronary Arteries using Low Osmolar Contrast (ICD-10-PCS; 2021-07-26)
DX: I11.0 Hypertensive heart disease with heart failure (principal); I50.43 Acute on chronic combined systolic (congestive) and diastolic (congestive) heart failure; J96.21 Acute and chronic respiratory failure with hypoxia; J44.1 Chronic obstructive pulmonary disease with (acute) exacerbation; I47.2 Ventricular tachycardia; F31.9 Bipolar disorder, unspecified; E78.5 Hyperlipidemia, unspecified; M19.90 Unspecified osteoarthritis, unspecified site; F41.9 Anxiety disorder, unspecified; E87.6 Hypokalemia; I48.0 Paroxysmal atrial fibrillation; L30.9 Dermatitis, unspecified; I42.9 Cardiomyopathy, unspecified; K25.9 Gastric ulcer, unspecified as acute or chronic, without hemorrhage or perforation; Z85.118 Personal history of other malignant neoplasm of bronchus and lung; Z87.891 Personal history of nicotine dependence; Z79.82 Long term (current) use of aspirin; Z79.52 Long term (current) use of systemic steroids; Z99.81 Dependence on supplemental oxygen; I25.2 Old myocardial infarction
CPT/HCPCS: 99223-AI; 99232-AI; 99233-AI; 99239; J0282; J1644; J1650; J1940; J2250; J2920; J3010; J3475; J7060; J7512; Q9967

== ENCOUNTER 2022-04-13 17:32 | Emergency (ER) | payer MEDICARE, MEDICAID ==
[~2022-04-13] VITALS: Ht 154.9 cm; Wt 68.2 kg
[~2022-04-13 17:32] MED LIST changes: +00186-0372-20 IH; +HCTZ12.5TAB PO; +LASIX 20MG TABL20 MG PO; +LIPITOR 80MG80 MG PO; +TAMBOCOR150 MG PO
[2022-04-13 17:46] VITALS: TEMP 98.1
[2022-04-13 21:02] LABS: BASO % 0.4 % (0.0-2.0); EOS # 0.4 K/mm3 (0.0-0.7); EOS % 4.2 % (0.0-4.0); GRAN % 47.9 % (42.2-75.2); HEMOGLOBIN 13.2 g/dl (12.5-16.0); LYMPH % 35.2 % (20.0-51.0); MEAN CELL VOLUME 93 fl (80.0-100.0); MEAN CORPUSCULAR HEMOGLOBIN 31 pg (27-31); MEAN CORPUSCULAR HGB CONC 33 g/dl (33.0-37.0); MEAN PLATELET VOLUME 10.9 fl (7.4-10.4); MONO % 11.8 % (1.7-9.3); PLATELET COUNT 227 K/mm3 (130-400); RED BLOOD COUNT 4.32 M/mm3 (4.10-5.30); REDCELL DISTRIBUTION WIDTH-CV 15.2 % (11.5-14.5)
[2022-04-13 21:19] LABS: ALBUMIN 3.7 gm/dL (3.5-5.0); BILIRUBIN,TOTAL 0.6 mg/dL (0.2-1.2); CALCIUM 9.3 mg/dL (8.4-10.2); CREATININE, serum 0.88 mg/dL (0.57-1.11); POTASSIUM 3.7 mmol/L (3.5-4.5); TOTAL PROTEIN 7.1 gm/dL (6.2-8.1)
[2022-04-13 21:43] VITALS: BP 104/65; PULSE 60
[2022-11-26] MEDS ORDERED: ZOFRAN ODT4 MG PO (20:45)
[2023-03-21] MEDS ORDERED: ASPIRIN E.C. 8181 MG PO (08:53)
[2023-03-21] MEDS ORDERED: HCTZ 25MG TAB25 MG PO (08:55)
[2023-03-21] MEDS ORDERED: TOPROL XL100 MG PO (08:56)
[2023-03-21] MEDS ORDERED: MULTIVITAMIN200 MCG PO (08:57)
[2023-03-21] MEDS ORDERED: RT ADVAIR 128 DISKUS IH (08:58)
[2023-03-21] MEDS ORDERED: NATURAL POTASS595 MG PO (08:59)
[2023-03-24] MEDS ORDERED: PROTONIX20 MG PO (09:08)
== END 2022-04-13 21:44 | disposition home or self-care (01) ==
LOC: COL.ER 17:32
PROVIDERS: Personal Emergency Response Attendant
DX: I95.9 Hypotension, unspecified (principal)

== ENCOUNTER 2023-11-24 17:31 | Inpatient (IN) | payer MEDICARE, MEDICAID ==
[~2023-11-24] VITALS: Ht 157.5 cm; Wt 65.0 kg
[~2023-11-24 17:31] MED LIST changes: +APRESOLINE 25MG25 MG PO; +ASPIRIN E.C. 8181 MG PO; +BETAPACE 120MG120 MG PO; +CATAPRES 0.1MG0.1 MG PO; +HCTZ 25MG TAB25 MG PO; +MULTIVITAMIN200 MCG PO; +PROTONIX20 MG PO; +RT ADVAIR 128 DISKUS IH; +TOPROL XL100 MG PO; +TYLENOL 8 HR PO; +UROCIT-K 5540 MG/TAB PO; +ZOFRAN ODT4 MG PO
[2023-11-24 18:01] LABS: HEMATOCRIT 41.7 % (37.0-47.0); HEMOGLOBIN 13.7 g/dl (12.5-16.0); MEAN CELL VOLUME 90 fl (80.0-100.0); MEAN CORPUSCULAR HEMOGLOBIN 30 pg (27-31); MEAN CORPUSCULAR HGB CONC 33 g/dl (33.0-37.0); MEAN PLATELET VOLUME 11.4 fl (7.4-10.4); PLATELET COUNT 294 K/mm3 (130-400); RED BLOOD COUNT 4.63 M/mm3 (4.10-5.30); REDCELL DISTRIBUTION WIDTH-CV 15.9 % (11.5-14.5)
[2023-11-24 18:11] LABS: ALBUMIN 3.3 g/dL (3.4-4.8); BILIRUBIN,TOTAL 0.6 mg/dL (0.2-1.2); CALCIUM 10.3 mg/dL (8.4-10.2); CREATININE, serum 0.98 mg/dL (0.57-1.11); POTASSIUM 4.2 mEq/L (3.5-4.5); TOTAL PROTEIN 8.4 g/dl (6.2-8.1)
[2023-11-24 18:16] LABS: TROPONIN-I 0.022 ng/mL (0.00-0.033)
[2023-11-24] MEDS ORDERED: NS 1,000 ML IV ONE (18:30)
[2023-11-24] MEDS ORDERED: Albuterol/Ipratropium 3 MG-0.5 MG/3 ML Neb Soln IH ONE (18:30)
[2023-11-24 18:34] LABS: ANISOCYTOSIS 1+; LYMPHOCYTE 8 % (20.0-51.0); NEUTROPHILS 82 % (42.0-75.2); OVALOCYTES 1+; PLATELET ESTIMATE NORMAL (NORMAL); TEAR DROP CELLS 1+
[2023-11-24] MEDS ORDERED: Iohexol 300 - 100 ML VIAL IV ONE (19:14)
[2023-11-24] MEDS ORDERED: NS 50 ML IV ONE (19:18)
[2023-11-24 20:01] LABS: COLLECTION METHOD CLEAN CATCH
[2023-11-24 20:11] LABS: PH 6.5 (5.0-8.5); URINE APPEARANCE CLEAR (CLEAR/HAZY); URINE BLOOD NEGATIVE (NEGATIVE); URINE COLOR YELLOW (YELLOW); URINE GLUCOSE NEGATIVE (NEGATIVE); URINE KETONE NEGATIVE (NEGATIVE); URINE NITRATE NEGATIVE (NEGATIVE); URINE PROTEIN(semi-quant) 2+ (NEGATIVE); URINE UROBILINOGEN 0.2 E.U/dL (0.2-1.0)
[2023-11-24] MEDS ORDERED: Doxycycline Hyclate 100 MG in NS 150 ML IV SCH (20:30)
[2023-11-24] MEDS ORDERED: Acetaminophen 325 MG TAB PO PRN (20:30)
[2023-11-24] MEDS ORDERED: dexAMETHasone 10 MG/ML VIAL IV SCH (20:30)
[2023-11-24] MEDS ORDERED: Albuterol/Ipratropium 3 MG-0.5 MG/3 ML Neb Soln IH PRN (20:30)
[2023-11-24 20:34] LABS: URINE RBC NONE SEEN /hpf (0-2); URINE WBC 0-2 /hpf (0-2)
[2023-11-24] MEDS ORDERED: dexAMETHasone 4 MG/ML VIAL IV SCH (20:45)
[2023-11-24] MEDS ORDERED: PROAIR HFA0.09 MG/AC IH (20:57)
[2023-11-24] MEDS ORDERED: NATURAL MAGNES200 MG PO (21:00)
[2023-11-24] MEDS ORDERED: NATURAL POTASS595 MG PO (21:00)
[2023-11-24] MEDS ORDERED: cefTRIAXone 1 G in Water For Injection,Sterile 10 ML IV SCH (21:00)
[2023-11-24] MEDS ORDERED: hydrALAZINE 25 MG TAB PO PRN (21:00)
[2023-11-24] MEDS ORDERED: NS 1,000 ML IV SCH (21:15)
--- NOTE | 2023-11-24 21:25 | NUR ---
REPORT RECIEVED FROM NADINE CROWDER IN ER.
--- NOTE | 2023-11-24 21:45 | NUR ---
FEMALE PATIENT ARRIVED TO ROOM #310 FROM ER VIA STRETCHER. PATIENT ASSISTED TO BED WITH STAND BY ASSIST. GAIT STEADY. PATIENT C/O SHORTNESS OF BREATH. OXYGEN ATTACHED TO WALK AT 4 LITERS VIA NC. PATIENT RESTED AND DENIES ANY MORE SHORTNESS OF BREATH. GOWN CHANGED TO YELLOW GOWN AND YELLOW SOCKS PLACED ON. INTIAL INTAKE AND ASSESSMENT COMPLETED. PATIENT TOLERATED WELL. PATIENT REQUESTED TO USE BSC. PATIENT ASSISTED UP. PATIENT HAD MEDIUM LOSE BROWN BOWEL MOVEMENT. MAHSA CARE PROVIDED. PATIENT ASSISTED BACK TO BED AND HELPED TO REPOSITION FOR COMFORT. PITCHER OF ICE AND WATER ALONG WITH SPRITE AND CUP OF ICE GIVEN PER PATIENT REQUEST. SPUTUM CULTURE CUP GIVEN AND PATIENT VERABLIZED UNDERSTANDING OF HOW TO USE. PATIENT C/O PAIN IN RIGHT RIBS FROM COUGHING. PATIENT STATED PAIN LEVEL WAS 6 ON SCELE OF 0 TO 10. PATIENT DENIES ANY OTHER NEEDS. BED IN LOW POSITION WITH WHEELS LOCKED WITH RAILS UP X3 AND CALL LIGHT WITHIN REACH. BED ALARM ON.
[2023-11-24 22:11] VITALS: BP 127/87; PULSE 68; TEMP 97.9
[2023-11-25] VITALS (11 sets, daily range): BP systolic 95–158; BP diastolic 57–98; PULSE 77–123; TEMP 97.4–98.3
[2023-11-25] MEDS ORDERED: Albuterol/Ipratropium 3 MG-0.5 MG/3 ML Neb Soln IH SCH (02:00)
[2023-11-25] MEDS ORDERED: Budesonide Neb Susp 0.5 MG/2 ML AMP IH SCH (07:00)
[2023-11-25] MEDS ORDERED: Formoterol Neb Soln 20 MCG/2 ML UD IH SCH (07:00)
[2023-11-25 07:57] LABS: HEMATOCRIT 40.7 % (37.0-47.0); HEMOGLOBIN 13.3 g/dl (12.5-16.0); MEAN CELL VOLUME 89 fl (80.0-100.0); MEAN CORPUSCULAR HEMOGLOBIN 29 pg (27-31); MEAN CORPUSCULAR HGB CONC 33 g/dl (33.0-37.0); MEAN PLATELET VOLUME 11.9 fl (7.4-10.4); RED BLOOD COUNT 4.57 M/mm3 (4.10-5.30); REDCELL DISTRIBUTION WIDTH-CV 16.1 % (11.5-14.5)
[2023-11-25 08:08] LABS: CALCIUM 9.6 mg/dL (8.4-10.2); CREATININE, serum 0.86 mg/dL (0.57-1.11); POTASSIUM 4.5 mEq/L (3.5-4.5)
[2023-11-25 08:11] LABS: PLATELET COUNT 174 K/mm3 (130-400)
[2023-11-25 08:13] LABS: LYMPHOCYTE 5 % (20.0-51.0); NEUTROPHILS 95 % (42.0-75.2)
[2023-11-25 08:14] LABS: PLATELET ESTIMATE NORMAL (NORMAL)
[2023-11-25] MEDS ORDERED: Citalopram 20 MG TAB PO SCH (09:00)
[2023-11-25] MEDS ORDERED: Lisinopril 20 MG TAB PO SCH (09:00)
[2023-11-25] MEDS ORDERED: cloNIDine 0.1 MG TAB PO SCH (09:00)
--- NOTE | 2023-11-25 09:00 | NUR ---
PATIENT ALERT AND ORIENTED X4. PATIENT ON 4L 02/NC. PATIENT REPORTS PAIN OF 4/10 TO RIBS. PATIENT FLUIDS AND ANTIBIOTIC RUNNING PER DOCTORS ORDERS. CALL LIGHT WITHIN REACH. BED AT LOWEST POSITION.
[2023-11-25] MEDS ORDERED: dexAMETHasone 10 MG/ML VIAL IV ONE (09:30)
--- NOTE | 2023-11-25 10:16 | NUR ---
SW met with patient to complete intake and discuss discharge planning. Patient lives in [place] with daughter (Malini Rapp [phone]) Patient informed KEITH that her PCP is Dr Shrestha and pharmacy of choice is [facility] in [place]. Patient informed KEITH that she is on oxygen daily, all day, she reports 2L. No other DMEs reported, she reports that she independent with ADLs and her daughter also supports her with care as needed. DPOA on file with hospital.
--- NOTE | 2023-11-25 13:00 | NUR ---
K-PAD PLACED ON PATIENT'S RIB AREA.
--- NOTE | 2023-11-25 13:01 | NUR ---
Data: Patient accepted spiritual care visit offered during Highway Patrol Pilot rounds. RN came into room to do a "med rec." Patient was agreeable to having Highway Patrol Pilot and RN in room at the same time. Barbie from Physical Therapy came into room. Barbie stated she would be back in 5 minutes. Assessment: Patient is experiencing anxiety that is related to her labored breathing. Patient gains comfort from her daughter and her pets. Plan of Care: Highway Patrol Pilot provided supportive listening. Highway Patrol Pilot educated and modeled "thankful therapy" prayers. Highway Patrol Pilot prayed for Patient. Chaplains will remain available as needed/requested while Patient is admitted to this hospital.
[2023-11-25] MEDS ORDERED: predniSONE 20 MG TAB PO SCH ×2 (17:00)
--- NOTE | 2023-11-25 20:00 | NUR ---
pt COMPLAINED OF PAIN AT LEFT FOREARM IV SITE. IV CATHETER REMOVED, CATHETER TIP INTACT. NEW IV PLACED TO LEFT UPPER ARM. FALL PRECAUTIONS IN PLACE. BED ALARM ON. CALL LIGHT WITHIN REACH.
[2023-11-25] MEDS ORDERED: Atorvastatin 80 MG TAB PO SCH (21:00)
[2023-11-26] VITALS (14 sets, daily range): BP systolic 143–190; BP diastolic 81–114; PULSE 72–87; TEMP 97.3–98.2
--- NOTE | 2023-11-26 04:44 | NUR ---
ASSESSMENT COMPLETE FOR PARTS EXPEDITER. PT CONTINUES WITH SOB WITH AMBULATION AND AT TIMES, AT REST WELL. PT COMPLAINED OF RIGHT SIDED PAIN. PT GIVEN TYLENOL AND A K-PAD FOR PAIN. PT FELT BOTH HELPED HER PAIN. PT DENIED CHEST PAIN, PALPITATIONS, N,V,D OR DIZZINESS. FALL PRECAUTIONS IN PLACE. BED ALARM ON. CALL LIGHT WITHIN REACH.
[2023-11-26] MEDS ORDERED: Furosemide 40 MG/4 ML VIAL IV ONE (05:45)
[2023-11-26] MEDS ORDERED: dexAMETHasone 10 MG/ML VIAL IV SCH (05:56)
[2023-11-26 07:46] LABS: BASO % 0.1 % (0.0-2.0); EOS % 0.1 % (0.0-4.0); GRAN # 12.3 K/mm3 (1.4-6.5); GRAN % 88.6 % (42.2-75.2); LYMPH # 0.8 K/mm3 (1.2-3.4); LYMPH % 5.9 % (20.0-51.0); MEAN CELL VOLUME 90 fl (80.0-100.0); MEAN CORPUSCULAR HGB CONC 32 g/dl (33.0-37.0); MEAN PLATELET VOLUME 10.4 fl (7.4-10.4); MONO # 0.6 K/mm3 (0.1-0.6); MONO % 4.6 % (1.7-9.3); PLATELET COUNT 261 K/mm3 (130-400)
[2023-11-26 07:49] LABS: HEMATOCRIT 35.1 % (37.0-47.0); HEMOGLOBIN 11.3 g/dl (12.5-16.0); MEAN CORPUSCULAR HEMOGLOBIN 29 pg (27-31)
--- NOTE | 2023-11-26 08:10 | NUR ---
PATIENT ALERT AND ORIENTED X4. DENIES PAIN AT THIS TIME. ON BIPAP MACHINE PER HOSPITALIST ORDER.PAIGE CATHETER DRAINING CLEAR YELLOW URINE. CALL LIGHT WITHIN REACH. BED AT LOWEST POSITION. BED ALARM ON.
[2023-11-26 08:19] LABS: CALCIUM 9.3 mg/dL (8.4-10.2); CREATININE, serum 0.74 mg/dL (0.57-1.11); POTASSIUM 3.9 mEq/L (3.5-4.5)
[2023-11-26] MEDS ORDERED: Citalopram 20 MG TAB PO SCH (09:00)
[2023-11-26] MEDS ORDERED: Azithromycin 250 MG TAB PO SCH (12:00)
[2023-11-26] MEDS ORDERED: Cefepime 1 G in Water For Injection,Sterile 10 ML IV SCH (12:00)
--- NOTE | 2023-11-26 18:20 | NUR ---
PATIENT ON BIPAP MACHINE THROUGHOUT THE DAY. PATIENT UNABLE TO BREATH AND CHEW FOOD AT THE SAME TIME.PATIENT HAS LABORED BREATHING AT REST. PATIENT SLEEPING ON AND OFF THROUGHOUT THE DAY. CALL LIGHT WITHIN REACH. BED AT LOWEST POSITION.
[2023-11-26] MEDS ORDERED: hydrALAZINE 20 MG/ML 1 ML VIAL IV PRN (23:45)
[2023-11-27] VITALS (18 sets, daily range): BP systolic 153–222; BP diastolic 92–130; PULSE 65–108; TEMP 97.1–98.2
--- NOTE | 2023-11-27 01:04 | NUR ---
Call from primary RN Monserrat to assess patients blood pressure. This nurse did manual BP-222/122. Patient is diaphoretic and warm to touch. JORGE German notified MICHELLE Duggan-new orders received.
--- NOTE | 2023-11-27 01:11 | NUR ---
MEWs score is currently 4. This charge nurse has assessed patient and is aware-Olga Lidia MARTINEZ is also aware. New orders received by JORGE German-primary nurse-to give new ordered meds for hypertension. Patient is currently on cycled vitals. Will continue to monitor.
[2023-11-27] MEDS ORDERED: Metoprolol Tartrate 5 MG/5 ML VIAL IV SCH (01:15)
[2023-11-27] MEDS ORDERED: LORazepam 2 MG/ML 1 ML VIAL IV ONE (01:15)
[2023-11-27] MEDS ORDERED: Metoprolol Tartrate 5 MG/5 ML VIAL IV ONE (01:50)
--- NOTE | 2023-11-27 02:27 | NUR ---
MEWs score now a 2 post IV blood pressure meds.
--- NOTE | 2023-11-27 03:00 | NUR ---
ASSESSMENT COMPLETE FOR YARN MERCERIZER OPERATOR. pt HAD SOME PRETTY SUBSTANTIAL B/P'S THIS SHIFT. HOSPITALIST CALLED (AND LATER, AT BEDSIDE). APRESOLINE, METOPROLOL AND ATIVAN GIVEN ORDERED. pt WENT FOR A HIGH B/P OF 222/122 (PRE-TREATMENT) TO 153/92 (POST-TREATMENT). pt WAS ALSO DIAPHORETIC, FELT WARM AND HAD INCREASED WORK OF BREATHING. pt TACHYCARDIC. pt ALSO HAD A SMALL AMOUNT OF BLOOD IN HER URINE AND COMPLAINED OF A HEADACHE. pt GIVEN TYLENOL FOR HER HEADACHE. RT AND HOSPITALIST CALLED AND TO BEDSIDE. pt RECOVERED AND STATED SHE FELT BETTER. pt DENIED CHEST PAIN, N,V,D OR DIZZINESS. FALL PRECAUTIONS IN PLACE. BED ALARM ON. CALL LIGHT WITHIN REACH.
--- NOTE | 2023-11-27 06:50 | NUR ---
appears to be sleeping, eyes closed resp quiet and easy with BIPAP on, bedside shift report received from JORGE German
--- NOTE | 2023-11-27 07:50 | NUR ---
PATIENT ON BIPAP, /, 40% FIO2, RATE 12, TV 440, PATIENT LIKES BIPAP. BREATH SOUNDS COARSE THROUGHOUT. RT TX THROUGH BIPAP ATT. TOLERATED WELL.
--- NOTE | 2023-11-27 08:13 | NUR ---
Dr Welsh notified of BP 209/130 and asked her if the patient should be on telemetry, she does not want telemetry at this time, patient has ordered for apresoline and will administer that at this time, Dr Welsh states she will start something for her elevated BP
[2023-11-27] MEDS ORDERED: hydrALAZINE 25 MG TAB PO SCH ×2 (08:30)
--- NOTE | 2023-11-27 08:30 | NUR ---
resting in bed with BIPAP on, Dr Alcantar was in to see patient and Dr Welsh now in, full assessment completed, see interventions for further info, breakfast was delivered but she states she is not ready to eat yet but she will, also talked with her about getting up and into the chair later and she agrees to do this
--- NOTE | 2023-11-27 09:44 | NUR ---
had very small amount of breakfast, BP now 156/84
[2023-11-27 09:47] LABS: BASO % 0.1 % (0.0-2.0); GRAN # 11.1 K/mm3 (1.4-6.5); GRAN % 88.1 % (42.2-75.2); HEMOGLOBIN 11.7 g/dl (12.5-16.0); LYMPH # 0.9 K/mm3 (1.2-3.4); LYMPH % 7.1 % (20.0-51.0); MEAN CELL VOLUME 90 fl (80.0-100.0); MEAN CORPUSCULAR HEMOGLOBIN 29 pg (27-31); MEAN CORPUSCULAR HGB CONC 32 g/dl (33.0-37.0); MONO # 0.5 K/mm3 (0.1-0.6); MONO % 3.7 % (1.7-9.3); PLATELET COUNT 286 K/mm3 (130-400); RED BLOOD COUNT 4.04 M/mm3 (4.10-5.30); REDCELL DISTRIBUTION WIDTH-CV 15.9 % (11.5-14.5)
[2023-11-27 09:52] LABS: HEMATOCRIT 36.4 % (37.0-47.0)
[2023-11-27 10:02] LABS: CALCIUM 9.2 mg/dL (8.4-10.2); CREATININE, serum 0.68 mg/dL (0.57-1.11); POTASSIUM 4.4 mEq/L (3.5-4.5)
--- NOTE | 2023-11-27 10:15 | NUR ---
physical therapy in to work with patient, assisted her into recliner with BIPAP on, spoke with patient and she feels better with the BIPAP on
--- NOTE | 2023-11-27 11:37 | NUR ---
remains up in chair with BIPAP on and appears to be sleeping
--- NOTE | 2023-11-27 12:15 | NUR ---
continues to sleep between checks, awakens easily and is alert and orietned, denies pain or needs
--- NOTE | 2023-11-27 13:50 | NUR ---
awake and cardiopulmonary in and giving breathing treatment, told her her daughter had called to check on her and asked her to text her and let her know she is doing OK<
--- NOTE | 2023-11-27 14:30 | NUR ---
physical therapy was in and assisted her back to bed, currently appears to be sleeping on right side with BIPAP on,
--- NOTE | 2023-11-27 15:35 | NUR ---
Car Checker met with patient to follow up on discharge planning. Patient is currently on bipap. SW discussed Home Health with patient and provided Medicare.gov list of HH agencies. Patient is a readmit and was here 11/07-11/09. At that time, patient had declined HH. SW attempted to contact patient's daughter, Malini and left a message.
--- NOTE | 2023-11-27 15:40 | NUR ---
continues to sleep on right side, cocyx is red but skin intact
--- NOTE | 2023-11-27 16:09 | NUR ---
medicated with apresoline 10mg slow IV for BP 150/101, BIPAP off at this time with O2 on at 3 1/2L/NC
--- NOTE | 2023-11-27 17:43 | NUR ---
BP 173/109 after IV apresoline, medicated with scheduled apresoline 25mg po, O2 sat 92% on 3 1/2L/NC, c/o neck hurting, will have DIGITAL COLOR PRESS OPERATOR reposition for comfort, denies other needs
--- NOTE | 2023-11-27 17:45 | NUR ---
called and stated had some emesis, TINSMITH APPRENTICE states only a small amount on her gown, resting in bed now and will try some crackers
--- NOTE | 2023-11-27 18:52 | NUR ---
bedside shift report given to JORGE De Guzman, medicated with tylenol 650mg po for c/o headache
--- NOTE | 2023-11-27 19:04 | NUR ---
again had scant amount emesis which appeared to also be some mucus, reported this to JORGE German, attempted to call MICHELLE Duggan and no answer
[2023-11-28] VITALS (18 sets, daily range): BP systolic 145–196; BP diastolic 86–108; PULSE 64–84; TEMP 97.4–98.4
--- NOTE | 2023-11-28 01:48 | NUR ---
BREATHING TX HELD AT 1900 DUE TO PATIENT VOMITING. PT ALSO OFF BIPAP. RT IN ROOM AROUND 2300 TO ASK PT IF SHE'D BE WILLING TO WEAR THE BIPAP, PT STATED SHE WOULD LIKE TO "TAKE IT EASY" VAMSHI.
[2023-11-28] MEDS ORDERED: Metoprolol Tartrate 5 MG/5 ML VIAL IV SCH (05:45)
[2023-11-28] MEDS ORDERED: Metoprolol Tartrate 5 MG/5 ML VIAL IV ONE (06:00)
[2023-11-28 07:27] LABS: BASO % 0.1 % (0.0-2.0); GRAN # 8.7 K/mm3 (1.4-6.5); GRAN % 83.1 % (42.2-75.2); HEMATOCRIT 37.7 % (37.0-47.0); HEMOGLOBIN 12.1 g/dl (12.5-16.0); LYMPH % 9.8 % (20.0-51.0); MEAN CELL VOLUME 89 fl (80.0-100.0); MEAN CORPUSCULAR HEMOGLOBIN 29 pg (27-31); MEAN CORPUSCULAR HGB CONC 32 g/dl (33.0-37.0); MEAN PLATELET VOLUME 11.5 fl (7.4-10.4); MONO # 0.6 K/mm3 (0.1-0.6); PLATELET COUNT 291 K/mm3 (130-400); RED BLOOD COUNT 4.22 M/mm3 (4.10-5.30); REDCELL DISTRIBUTION WIDTH-CV 16.1 % (11.5-14.5)
[2023-11-28 07:47] LABS: CALCIUM 9.4 mg/dL (8.4-10.2); CREATININE, serum 0.67 mg/dL (0.57-1.11); MAGNESIUM 1.9 mg/dL (1.6-2.6); POTASSIUM 4.2 mEq/L (3.5-4.5)
--- NOTE | 2023-11-28 08:00 | NUR ---
PATIENT ALERT AND ORIENTED. OBSERVED TO HAVE INCREASE WORK OF BREATHING. PATIENT HAS BEEN HAVING ELEVATED BLOOD PRESSURE.MEDICATION WAS GIVEN PER DOCTORS ORDERS.PATIENT REMAINS IN BED RESTING. DENIES PAIN AT THIS TIME. ON 4.5 L . PATIENT PAIGE INPLACE DRAINING TEA-COLOR URINE WITH SOME SEDIMENT. CALL LIGHT WITHIN REACH. BED AT LOWEST POSITION.
[2023-11-28] MEDS ORDERED: hydrALAZINE 25 MG TAB PO ONE (09:45)
[2023-11-28] MEDS ORDERED: hydrALAZINE 25 MG TAB PO SCH (12:00)
--- NOTE | 2023-11-28 12:22 | NUR ---
Absorption And Adsorption Engineer contacted patient's daughter, Malini to discuss discharge planning and Home Health. Malini stated she is able to help her mother as needed and did not seem interested in HH at the time of the conversation. SW advised she is available to set up services if she and patient decide they are interested. Discharge Planning: Home with daughter, offered HH
--- NOTE | 2023-11-28 18:12 | NUR ---
PROVIDER NOTIFIED OF PATIENT ELEVATED BLOOD PRESSURE. NEW MEDICATION ORDERS GIVEN.
[2023-11-28] MEDS ORDERED: Labetalol 100 MG TAB PO ONE (18:15)
--- NOTE | 2023-11-28 19:27 | NUR ---
PT UNSURE IF SHE WANTS TO WEAR THE BIPAP TONIGHT.
[2023-11-29] VITALS (11 sets, daily range): BP systolic 128–183; BP diastolic 75–97; PULSE 63–72; TEMP 97.5–99.2
[2023-11-29] MEDS ORDERED: hydrALAZINE 20 MG/ML 1 ML VIAL IV PRN (03:30)
--- NOTE | 2023-11-29 05:50 | NUR ---
I called PAULETTE Duggan and reported small blood clots found in pt's urine. No new orders at this time.
--- NOTE | 2023-11-29 05:51 | NUR ---
SHift assessment completed. Pt is alert and oriented. She denies pain or discomfort at this time. She is on 4.5 L O2 via nasal cannula with use of a BIPAP at night. She has had high pressures throughout the day. PM medications administered as ordered. I called and spoke to her about the PRN apresoline order that was set to be administered with a SBP >140. This order was revised to be given with a SBP >160. Order has been updated in the chart. Pt has a arenas in place with small blood clots formed in yellow urine. She denies any needs at this time. Fall precautions in place and call light within reach.
--- NOTE | 2023-11-29 08:20 | NUR ---
PATIENT ALERT AND ORIENTED X4. PATIENT ON 3.5L 02/. DENIES PAIN AT THIS TIME. PATIENT REPORTED WORE BIPAP ALL NIGHT. PATIENT BLOOD PRESSURE ELEVATED. PATIENT REPORTS POOR APPETITE AND THAT "FOOD DOES NOT TASTE GOOD TO HER". PATIENT CALL LIGHT WITHIN REACH. BED AT LOWEST POSITION.
[2023-11-29] MEDS ORDERED: hydroCHLOROthiazide 25 MG TAB PO SCH (09:00)
--- NOTE | 2023-11-29 15:05 | NUR ---
Relief Operator met with patient to review discharge plan. SW discussed Home Health vs SNF. Patient does not want SNF and stated she wants to go home with HH. Patient requested [facility] and SW faxed referral.
--- NOTE | 2023-11-29 16:23 | NUR ---
[facility] can accept referral.
--- NOTE | 2023-11-29 21:20 | NUR ---
PATIENT RESTING IN BED WATCHING TV. REPORTS SOME SORENESS IN LEFT LEG AND BUTTOCKS, REPOSITIONED PATIENT AT THIS TIME. CALL LIGHT IS WITHIN REACH. BED IS LOCKED AND IN LOW POSITION.
[2023-11-30 00:44] VITALS: BP 161/76; PULSE 60; TEMP 97.5
[2023-11-30 00:51] VITALS: BP_SYST 161
[2023-11-30 05:15] VITALS: BP 162/91; PULSE 64; TEMP 97.7
[2023-11-30 08:00] VITALS: BP 169/101; PULSE 63; TEMP 98.1
[2023-11-30] MEDS ORDERED: dexAMETHasone 4 MG TAB PO SCH (08:00)
[2023-11-30 08:30] VITALS: BP_SYST 169
--- NOTE | 2023-11-30 08:45 | NUR ---
PATIENT ALERT AND ORIENTED X4. PATIENT DENIES PAIN AT THIS TIME. PATIENT ON 2L O2/NC. PATIENT PAIGE CATHETER REMOVED. PATIENT TOLERATED REMOVAL WELL. CALL LIGHT WITHIN REACH. BED AT LOWEST POSITION.BED ALARM ON.
[2023-11-30] MEDS ORDERED: APRESOLINE50 MG PO (08:51)
[2023-11-30] MEDS ORDERED: HCTZ 25MG TAB25 MG PO (08:51)
[2023-11-30] MEDS ORDERED: PREDNISONE20 MG PO (08:54)
[2023-11-30] MEDS ORDERED: LEVAQUIN 750MG750 M1 PO (08:55)
[2023-11-30] MEDS ORDERED: levoFLOXacin 750 MG TAB PO ONE (09:00)
--- NOTE | 2023-11-30 09:00 | NUR ---
PATIENT PAIGE CATHETER WAS REMOVED. PATIENT VOIDING WELL. DENIES PAIN, BURNING OR DIFFICULTY VOIDING.
--- NOTE | 2023-11-30 10:00 | NUR ---
PATIENT DISCHARGE INSTRUCTIONS GIVEN. PATIENT VERBALIZED UNDERSTANDING. PATIENT IV DISCONTINUED. PATIENT INSTRUCTED TO CALL WHEN RIDE ARRIVES TO BE ESCORTED OUT BY PCT.
--- NOTE | 2023-11-30 10:34 | NUR ---
PATIENT ESCORTED OUT OF UNIT BY ANGELLA NOEL.
--- NOTE | 2023-11-30 11:29 | NUR ---
Pharmacy Assistant attended clinical rounds with the team and patient is ready for discharge today. SW met with patient to present and review IM form. Patient verbalized understanding and provided signature. SW placed form in chart and provided copy to patient. KEITH contacted Sil at [facility] and faxed referral. Discharge Plan: Home with [facility]
== END 2023-11-30 10:34 | disposition home health service (06) | DRG 177 ==
LOC: COL.ER 17:31 → MEDICAL 20:34 → EDBEDREQ 20:38 → MEDICAL 21:41
PROVIDERS: Internal Medicine; Nurse Practitioner Family; Nurse Practitioner Primary Care; ADMIT Internal Medicine
PROC: 5A09457 Assistance with Respiratory Ventilation, 24-96 Consecutive Hours, Continuous Positive Airway Pressure (ICD-10-PCS; principal; 2023-11-26)
DX: J15.1 Pneumonia due to Pseudomonas (principal); J96.21 Acute and chronic respiratory failure with hypoxia; J44.0 Chronic obstructive pulmonary disease with (acute) lower respiratory infection; J44.1 Chronic obstructive pulmonary disease with (acute) exacerbation; I13.0 Hypertensive heart and chronic kidney disease with heart failure and stage 1 through stage 4 chronic kidney disease, or unspecified chronic kidney disease; I50.22 Chronic systolic (congestive) heart failure; N18.2 Chronic kidney disease, stage 2 (mild); I48.0 Paroxysmal atrial fibrillation; E78.5 Hyperlipidemia, unspecified; Z66 Do not resuscitate; K25.9 Gastric ulcer, unspecified as acute or chronic, without hemorrhage or perforation; K21.9 Gastro-esophageal reflux disease without esophagitis; I25.10 Atherosclerotic heart disease of native coronary artery without angina pectoris; Z20.822 Contact with and (suspected) exposure to COVID-19; F32.9 Major depressive disorder, single episode, unspecified; R73.9 Hyperglycemia, unspecified; K52.9 Noninfective gastroenteritis and colitis, unspecified; I16.0 Hypertensive urgency; Z85.118 Personal history of other malignant neoplasm of bronchus and lung; Z99.81 Dependence on supplemental oxygen; Z90.49 Acquired absence of other specified parts of digestive tract; Z87.891 Personal history of nicotine dependence; Z88.8 Allergy status to other drugs, medicaments and biological substances; Z92.3 Personal history of irradiation; Z95.818 Presence of other cardiac implants and grafts; Z79.899 Other long term (current) drug therapy; Z79.82 Long term (current) use of aspirin; Z23 Encounter for immunization
CPT/HCPCS: A9284; J0360; J0692; J0696; J1100; J1650; J1940; J2060; J7030; J7512; J8540; Q9967

== ENCOUNTER 2023-12-10 17:09 | Emergency (ER) | payer MEDICARE, MEDICAID ==
[~2023-12-10] VITALS: Ht 154.9 cm; Wt 63.6 kg
[~2023-12-10 17:09] MED LIST changes: +APRESOLINE50 MG PO; +LEVAQUIN 750MG750 M1 PO; +NATURAL MAGNES200 MG PO; +NATURAL POTASS595 MG PO
[2023-12-10 17:12] VITALS: TEMP 98.6
[2023-12-10 18:24] LABS: BASO % 0.1 % (0.0-2.0); EOS # 0.1 K/mm3 (0.0-0.7); GRAN # 6.9 K/mm3 (1.4-6.5); HEMOGLOBIN 11.8 g/dl (12.5-16.0); LYMPH # 1.7 K/mm3 (1.2-3.4); LYMPH % 17.1 % (20.0-51.0); MEAN CELL VOLUME 90 fl (80.0-100.0); MEAN CORPUSCULAR HEMOGLOBIN 29 pg (27-31); MEAN CORPUSCULAR HGB CONC 32 g/dl (33.0-37.0); MEAN PLATELET VOLUME 11.6 fl (7.4-10.4); MONO # 0.9 K/mm3 (0.1-0.6); MONO % 9.4 % (1.7-9.3); PLATELET COUNT 260 K/mm3 (130-400); RED BLOOD COUNT 4.04 M/mm3 (4.10-5.30); REDCELL DISTRIBUTION WIDTH-CV 15.8 % (11.5-14.5)
[2023-12-10 18:27] LABS: HEMATOCRIT 36.4 % (37.0-47.0)
[2023-12-10 18:38] LABS: BILIRUBIN,TOTAL 0.4 mg/dL (0.2-1.2); C-REACTIVE PROTEIN 0.11 mg/dL (0.00-0.50); CALCIUM 8.8 mg/dL (8.4-10.2); CREATININE, serum 0.86 mg/dL (0.57-1.11); POTASSIUM 3.8 mEq/L (3.5-4.5); TOTAL PROTEIN 6.3 g/dl (6.2-8.1)
[2023-12-10 21:17] LABS: COLLECTION METHOD CLEAN CATCH
[2023-12-10 21:23] LABS: URINE APPEARANCE CLEAR (CLEAR/HAZY); URINE BLOOD NEGATIVE (NEGATIVE); URINE COLOR YELLOW (YELLOW); URINE GLUCOSE NEGATIVE (NEGATIVE); URINE KETONE NEGATIVE (NEGATIVE); URINE NITRATE NEGATIVE (NEGATIVE); URINE PROTEIN(semi-quant) NEGATIVE (NEGATIVE); URINE UROBILINOGEN 0.2 E.U/dL (0.2-1.0)
[2023-12-10] MEDS ORDERED: DOXYCYCLINE 10100 MG PO (21:55)
[2023-12-10] MEDS ORDERED: AMOXICILLIN 8751 TAB PO (21:55)
[2023-12-10] MEDS ORDERED: Doxycycline Monohydrate 100 MG CAP PO ONE (22:00)
[2023-12-10] MEDS ORDERED: Amoxicillin/Clavulanate K+ 875/125 MG TAB PO ONE (22:00)
[2023-12-10 22:19] VITALS: BP 100/70; PULSE 69
== END 2023-12-10 22:26 | disposition home or self-care (01) ==
LOC: COL.ER 17:09
PROVIDERS: Nurse Practitioner
DX: J18.9 Pneumonia, unspecified organism (principal); Z99.81 Dependence on supplemental oxygen